=== PATIENT | male | born 1995 | race Two or more races ===

== ENCOUNTER 2018-05-18 12:53 | Emergency (ER) | payer SELFPAY | END 2018-05-18 13:55 | disposition left against medical advice (07) | LOC: EMS 12:53 | DX: S61.411A Laceration without foreign body of right hand, initial encounter (principal); W45.8XXA Other foreign body or object entering through skin, initial encounter; Y93.89 Activity, other specified; Y92.89 Other specified places as the place of occurrence of the external cause; Y99.8 Other external cause status; Z53.21 Procedure and treatment not carried out due to patient leaving prior to being seen by health care provider ==

== ENCOUNTER 2018-08-02 01:22 | Emergency (ER) | payer MEDICAID ==
[~2018-08-02] VITALS: Ht 175.3 cm; Wt 74.1 kg
[2018-08-02] MEDS ORDERED: OxyCODONE HCL/ACETAMINOPHEN 5-325 MG TABLET PO ONE (03:30)
[2018-08-02] MEDS ORDERED: LIDOCAINE 2% 30 ML JELLY TP ONE (03:30)
[2018-08-02] MEDS ORDERED: BUPIVACAINE HCL/PF 0.25% 10 ML VIAL INJ ONE (03:45)
[2018-08-02] MEDS ORDERED: LIDOCAINE 2% 5 ML JELLY TP ONE (04:15)
[2018-08-02 05:00] VITALS: BP 125/83
[2018-08-02] MEDS ORDERED: ONDANSETRON HCL 4 MG TABLET PO ONE (05:00)
[2018-08-02] MEDS ORDERED: BACITRACIN 0.9 GM PACKET OINTMENT TP ONE (05:00)
== END 2018-08-02 05:37 | disposition home or self-care (01) ==
LOC: EMS 01:22
DX: S61.412A Laceration without foreign body of left hand, initial encounter (principal); F12.90 Cannabis use, unspecified, uncomplicated; F17.210 Nicotine dependence, cigarettes, uncomplicated; X99.0XXA Assault by sharp glass, initial encounter; Y93.89 Activity, other specified; Y92.89 Other specified places as the place of occurrence of the external cause; Y99.8 Other external cause status
CPT/HCPCS: 12002; 73130; 99283; J3490; Q0162